=== PATIENT | female | born 1945 | race African-American/Black ===

== ENCOUNTER 2018-02-26 07:36 | Emergency (ER) | payer MEDICARE ==
[~2018-02-26] VITALS: Ht 170.2 cm; Wt 45.0 kg
[2018-02-26] MEDS ORDERED: IBUPROFEN 600MG TABLET PO ONE (08:15)
[2018-02-26] MEDS ORDERED: ACETAMINOPHEN 325MG TABLET PO ONE (08:15)
[2018-02-26] MEDS ORDERED: HYDROCODONE/ACETAMINOPHEN 5/325MG TABLET PO ONE (09:00)
[2018-02-26 09:41] VITALS: BP 130/91
== END 2018-02-26 09:40 | disposition home or self-care (01) ==
LOC: ER 07:36
DX: M16.12 Unilateral primary osteoarthritis, left hip (principal); G89.29 Other chronic pain; M54.5 Low back pain; I10 Essential (primary) hypertension; Z98.890 Other specified postprocedural states
CPT/HCPCS: 72100; 73522; 99284

== ENCOUNTER 2018-09-03 05:12 | Emergency (ER) | payer MEDICARE, OTHER ==
[~2018-09-03] VITALS: Ht 167.6 cm; Wt 41.0 kg
[2018-09-03] MEDS ORDERED: ACETAMINOPHEN 500MG TABLET PO ONE (06:30)
[2018-09-03] MEDS ORDERED: ASPIRIN 81MG TABLET PO ONE (06:30)
[2018-09-03] MEDS ORDERED: NITROGLYCERIN 0.4MG TABLET SL SL PRN (06:30)
[2018-09-03 07:11] LABS: CHLORIDE 114 mEq/L (98-107)
[2018-09-03 07:12] LABS: HEMATOCRIT. 34.6 % (36.0-48.0); HEMOGLOBIN. 10.7 g/dL (12.0-16.0); MEAN CORPUSCULAR HEMOGLOBIN 22.7 pg (28.0-32.0); MEAN CORPUSCULAR VOLUME 73.8 fL (81.0-99.0); MEAN PLATELET VOLUME 7.5 fl (7.4-10.4); PLATELET 404 x1000/uL (130-400); RED BLOOD CELL COUNT 4.69 mill/uL (4.2-5.4); RED CELL DISTRIBUTION WIDTH 21.6 % (11.6-14.6)
[2018-09-03 07:13] LABS: PROTHROMBIN TIME 10.5 sec (9.6-11.0)
[2018-09-03] MEDS ORDERED: POTASSIUM CHLORIDE 20MEQ TABLET SR PO ONE (08:00)
[2018-09-03] MEDS ORDERED: ONDANSETRON HCL 4MG/2ML INJ IV ONE (08:00)
[2018-09-03 08:11] LABS: NUCLEATED RED BLOOD CELLS 2 /100 WBC
[2018-09-03 08:12] LABS: PLATELET ESTIMATE SLIGHTLY INCREASED
[2018-09-03 10:44] VITALS: BP 104/61
== END 2018-09-03 10:51 | disposition home or self-care (01) ==
LOC: ER 05:12
DX: R07.89 Other chest pain (principal); R06.02 Shortness of breath; I10 Essential (primary) hypertension; D86.9 Sarcoidosis, unspecified; Z88.6 Allergy status to analgesic agent
CPT/HCPCS: 36415; 71045; 80053; 83880; 84484; 85025; 85610; 93005; 96374; 99284; J2405

== ENCOUNTER 2024-09-04 13:09 | Inpatient (IN) | payer MEDICARE, MEDICAID ==
[~2024-09-04] VITALS: Ht 170.2 cm; Wt 72.3 kg
[~2024-09-04 13:09] MED LIST: AMLO5TAB88 PO; ATOR20TA65 PO; DICL100G58 TP; GABA-1180 PO; HYDR25TA PO; METO25TA6 PO
[2024-09-04 13:57] LABS: BASOPHILS % 0.7 % (0.0-2.0); DIFFERENTIAL COMMENT 0; EOSINOPHILS % 1.9 % (0.0-5.0); HEMATOCRIT. 40.2 % (36.0-48.0); HEMOGLOBIN. 12.9 g/dL (12.0-16.0); LYMPHOCYTES % 33.8 % (20.0-50.0); MEAN CORPUSCULAR HEMOGLOBIN 24.8 pg (28.0-32.0); MEAN CORPUSCULAR HGB CONC 32.2 g/dL (31.0-37.0); MEAN PLATELET VOLUME 8.3 fl (7.4-10.4); MONOCYTES % 7.5 % (2.0-8.0); NEUTROPHILS % 56.1 % (40.0-76.0); PLATELET 211 x1000/uL (130-400); RED BLOOD CELL COUNT 5.22 mill/uL (4.2-5.4); RED CELL DISTRIBUTION WIDTH 15.2 % (11.6-14.6); WHITE BLOOD COUNT 4.1 x1000/uL (4.5-11.0)
[2024-09-04 14:06] LABS: CHLORIDE 104 mEq/L (98-107); POTASSIUM 3.7 mEq/L (3.5-5.1); SODIUM 137 mEq/L (136-145)
[2024-09-04 14:07] LABS: CALCIUM 9.1 mg/dL (8.7-10.4); CARBON DIOXIDE 25 mEq/L (21-32)
[2024-09-04 14:12] LABS: CREATININE 0.9 mg/dL (0.6-1.0); GLUCOSE 89 mg/dL (70-105); UREA NITROGEN BLOOD 15 mg/dL (9-23)
[2024-09-04 14:13] LABS: TROPONIN I HIGH SENSITIVITY 6 ng/L (3.0-34)
[2024-09-04 14:14] LABS: ALANINE AMINOTRANSFERASE 8 IU/L (10-49); ASPARTATE AMINOTRANSFERASE 19 IU/L (<34)
[2024-09-04 14:15] LABS: BILIRUBIN DIRECT 0.2 mg/dL (<=3.0); BILIRUBIN TOTAL 0.5 mg/dL (0.1-1.0); PROTEIN TOTAL 7.7 g/dL (6.0-8.3)
[2024-09-04] MEDS: ASPIRIN 81MG TABLET PO ONE (15:00)
[2024-09-04] MEDS: ACETAMINOPHEN 325MG TABLET PO ONE (15:01)
[2024-09-04] MEDS ORDERED: ACETAMINOPHEN 325MG TABLET PO ONE (15:45)
[2024-09-04 15:52] LABS: CLARITY URINE CLEAR (CLEAR); COLOR URINE YELLOW (YELLOW); GLUCOSE URINE NEGATIVE (NEGATIVE); KETONES URINE NEGATIVE (NEGATIVE); LEUKOCYTE ESTERASE URINE 2+ (NEGATIVE); NITRITE URINE NEGATIVE (NEGATIVE); OCCULT BLOOD URINE NEGATIVE (NEGATIVE); PROTEIN URINE NEGATIVE (NEGATIVE); SPECIFIC GRAVITY URINE 1.025 (1.005-1.030)
[2024-09-04 16:25] LABS: BACTERIA URINE NONE SEEN; RBC URINE NONE SEEN /hpf (0-2); SQUAMOUS EPITHELIAL CELL URINE 1+ /lpf (RARE/1+); YEAST URINE 1+
[2024-09-04] MEDS ORDERED: CEFTRIAXONE 1GM/50ML 50 ML IV ONE (16:45)
[2024-09-04 17:26] VITALS: BP 120/57; PULSE 54; RESP 18; TEMP 36.6; O2SAT 94
[2024-09-04 17:37] VITALS: BP 120/57; PULSE 55; RESP 16; TEMP 36.6
[2024-09-04 20:00] VITALS: PULSE 51; RESP 19; TEMP 36.6; O2SAT 90
[2024-09-04 20:27] VITALS: BP 117/62; PULSE 55; RESP 12; O2SAT 95
[2024-09-04] MEDS ORDERED: ZOLPIDEM TARTRATE 5MG TABLET PO PRN (23:00)
[2024-09-04] MEDS ORDERED: ONDANSETRON HCL 4MG/2ML INJ IV PRN (23:00)
[2024-09-04] MEDS ORDERED: CLONIDINE 0.1MG TABLET PO PRN (23:00)
[2024-09-04] MEDS ORDERED: ACETAMINOPHEN 325MG TABLET PO PRN (23:00)
[2024-09-04 23:21] VITALS: BP 114/88; PULSE 60; RESP 19; TEMP 36.7; O2SAT 94
[2024-09-05] VITALS (7 sets, daily range): BP systolic 116–130; BP diastolic 68–88; PULSE 52–69; RESP 17–26; TEMP 36.6–36.9; O2SAT 91–95
[2024-09-05] MEDS: LORAZEPAM 2MG/ML UD SYRINGE IV PRN (02:09)
[2024-09-05 02:51] LABS: *AMPHETAMINES SCREEN URINE NEGATIVE (NEGATIVE)
[2024-09-05 02:52] LABS: *BARBITURATES SCREEN URINE NEGATIVE (NEGATIVE); *BENZODIAZEPINES SCREEN URINE NEGATIVE (NEGATIVE); *COCAINE SCREEN URINE NEGATIVE (NEGATIVE); CANNABINOID URINE SCREEN NEGATIVE (NEGATIVE); ECSTASY MDMA SCREEN URINE NEGATIVE (NEGATIVE); METHADONE URINE SCREEN NEGATIVE (NEGATIVE); OPIATES URINE SCREEN PRESUMPTIVE POSITIVE (NEGATIVE); PHENCYCLIDINE URINE SCREEN NEGATIVE (NEGATIVE)
[2024-09-05] MEDS: SODIUM CHLORIDE 0.9% 3ML FLUSH IVF SCH (05:28)
[2024-09-05] MEDS: GABAPENTIN 300MG CAPSULE PO SCH (05:28)
[2024-09-05] MEDS: MAGNESIUM/ALUMINUM HYDROXIDE/SIMETHICONE 30ML UDC PO PRN (05:45)
[2024-09-05 09:11] LABS: TROPONIN I HIGH SENSITIVITY 9 ng/L (3.0-34)
[2024-09-05] MEDS: ACETAMINOPHEN 325MG TABLET PO PRN (11:09)
[2024-09-05] MEDS ORDERED: GABAPENTIN 300MG CAPSULE PO SCH (14:00)
[2024-09-05] MEDS: KETOROLAC 30MG/ML VIAL IV PRN (15:03)
[2024-09-05 17:31] LABS: TROPONIN I HIGH SENSITIVITY 10 ng/L (3.0-34)
[2024-09-06] VITALS: BP 117/64; PULSE 58; RESP 15; TEMP 36.6; O2SAT 94
[2024-09-06 04:00] VITALS: BP 106/63; PULSE 57; RESP 21; TEMP 36.7; O2SAT 95
[2024-09-06 08:00] VITALS: BP 131/83; PULSE 87; RESP 18; TEMP 36.7; O2SAT 95
[2024-09-06 12:00] VITALS: BP 106/73; PULSE 79; RESP 16; TEMP 37.1; O2SAT 97
[2024-09-06 16:00] VITALS: BP 134/70; PULSE 70; RESP 13; TEMP 36.8; O2SAT 97
[2024-09-06 20:00] VITALS: BP 107/46; PULSE 63; RESP 20; TEMP 36.9; O2SAT 95
[2024-09-06] MEDS: DIPHENHYDRAMINE 50MG/ML VIAL IV PRN (22:11)
[2024-09-07] VITALS: BP 124/78; PULSE 60; RESP 14; TEMP 36.4; O2SAT 96
[2024-09-07 04:00] VITALS: BP 122/72; PULSE 71; RESP 16; TEMP 36.3; O2SAT 95
[2024-09-07 08:00] VITALS: BP 117/88; PULSE 70; RESP 16; TEMP 36.9; O2SAT 97
[2024-09-07 12:00] VITALS: BP 120/80; PULSE 70; RESP 20; TEMP 36.4; O2SAT 96
[2024-09-07] MEDS: LOPERAMIDE HCL 2MG CAPSULE PO PRN (13:45)
[2024-09-07 16:00] VITALS: BP 110/56; PULSE 81; RESP 20; TEMP 36.4; O2SAT 100
[2024-09-07 20:00] VITALS: BP 114/70; PULSE 91; RESP 19; TEMP 36.3; O2SAT 97
[2024-09-08 04:00] VITALS: BP 103/61; PULSE 67; RESP 19; TEMP 36.3; O2SAT 100
[2024-09-08 08:00] VITALS: BP 110/65; PULSE 78; RESP 18; TEMP 36.7; O2SAT 100
[2024-09-08 12:00] VITALS: BP 114/62; PULSE 75; RESP 18; TEMP 36.6; O2SAT 100
[2024-09-08 15:10] VITALS: BP 125/78; PULSE 75; TEMP 97.9; O2SAT 65
[2024-09-08 16:00] VITALS: BP 118/62; PULSE 78; RESP 18; TEMP 36.6; O2SAT 100
== END 2024-09-08 17:10 | DRG 206 ==
LOC: ER 13:09 → EDBEDREQ 14:44 → 3WST 15:40 → EDBEDREQ 15:46 → ENRESERV 16:02 → 3WST 17:14 → 6EST 09-07 10:10
PROVIDERS: ADMIT Internal Medicine; ATTEND Internal Medicine
DX: M94.0 Chondrocostal junction syndrome [Tietze] (principal); I10 Essential (primary) hypertension; G89.4 Chronic pain syndrome; R41.89 Other symptoms and signs involving cognitive functions and awareness; E78.00 Pure hypercholesterolemia, unspecified; J44.9 Chronic obstructive pulmonary disease, unspecified; F03.90 Unspecified dementia, unspecified severity, without behavioral disturbance, psychotic disturbance, mood disturbance, and anxiety; Z79.899 Other long term (current) drug therapy
CPT/HCPCS: 36415; 71045; 80048; 80076; 80305; 81003; 83880; 84484; 85025; 93005; 93970; 99285; A4606; J1200; J1885; J2060